=== PATIENT | male | born 1970 | race Two or more races ===

== ENCOUNTER 2022-11-12 04:27 | Inpatient (IN) | payer BC, OTHER ==
[~2022-11-12] VITALS: Ht 177.8 cm; Wt 79.5 kg
[2022-11-12 05:41] LABS: Basophils # (auto) 0 10 ^3/uL (0-0.2); Basophils % (auto) 0.1 % (0.0-2.0); Eosinophils # (auto) 0 10 ^3/uL (0-0.8); Hematocrit 42.6 % (41.0-53.0); Hemoglobin 14.3 g/dL (13.5-17.5); Lymphocytes # (auto) 0.9 10 ^3/uL (0.4-5.4); Lymphocytes % (auto) 4.8 % (10.0-50.0); Mean Corpuscular Hemoglobin 30.7 pg (28.0-32.0); Mean Corpuscular Hgb Conc. 33.6 g/dL (32.0-36.0); Mean Corpuscular Volume 91.6 fL (80.0-100.0); Monocytes # (auto) 0.7 10 ^3/uL (0-1.3); Monocytes % (auto) 3.7 % (0.0-12.0); Neutrophils # (auto) 16.9 10 ^3/uL (1.6-8.6); Neutrophils % (auto) 91.4 % (37.0-80.0); Nucleated Red Blood Cells % 0.2 %; Red Blood Cells 4.65 10^6/uL (4.5-5.90); Red Cell Distribution Width 12.6 % (11.8-14.3); White Blood Cell 18.5 10^3/uL (4.4-10.8)
[2022-11-12 06:03] LABS: Potassium 4.5 mmol/L (3.5-5.1)
[2022-11-12 06:11] LABS: Albumin 3.7 g/dL (3.4-5.0); BUN/Creatinine Ratio 12.2 (10.0-20.0); Bilirubin, Total 1.8 mg/dL (0.2-1.0); Calcium 8.7 mg/dL (8.5-10.1); Total Protein 7.9 g/dL (6.4-8.2)
[2022-11-12] MEDS ORDERED: SODIUM CHLORIDE 0.9% 1,000 ML IV ONE (06:15)
[2022-11-12] MEDS ORDERED: PROMETHAZINE HCL 25 MG/ML 1ML IV PRN (06:15)
[2022-11-12] MEDS ORDERED: metroNIDAZOLE 500MG/100ML 100 ML IV ONE (06:15)
[2022-11-12] MEDS ORDERED: HYDROmorphone HCL 2 MG/ML VL/or syr IV ONE (06:15)
[2022-11-12] MEDS ORDERED: SODIUM CHLORIDE 0.9% 500 ML IVB ONE (06:15)
[2022-11-12] MEDS ORDERED: cefTRIAXone 1GM/50ML D5W 50 ML IV ONE (06:15)
[2022-11-12 06:39] LABS: INR 1.16 (0.9-1.15); Partial Thromboplastin Time 29.8 SEC (24.5-34.5); Prothrombin Time 12.1 sec (9.3-11.8)
[2022-11-12 06:40] LABS: Magnesium 2.2 mg/dL (1.6-2.6)
[2022-11-12 08:16] VITALS: PULSE 87; RESP 19; O2SAT 94
[2022-11-12] MEDS ORDERED: HYDROcodone-ACET 5/325MG TAB PO PRN (09:15)
[2022-11-12] MEDS ORDERED: ONDANSETRON HCL 4 MG/2 ML VIAL IV PRN ×2 (09:15→13:15)
[2022-11-12] MEDS ORDERED: ACETAMINOPHEN 325 MG TAB PO PRN (09:15)
[2022-11-12] MEDS ORDERED: MORPHINE SULFATE INJ 2 MG/ml SYRG IV PRN (09:15)
[2022-11-12] MEDS ORDERED: ceFAZolin 1GM/50ML 100 ML IV ONE (10:38)
[2022-11-12] MEDS ORDERED: BUPIVACAINE W/ EPINEPH 0.5% INJ 50ML MDV IJ ONE (11:26)
[2022-11-12] MEDS ORDERED: LIDOCAINE 1% HCL (LOCAL ANESTH.) INJ 20ML MDV ONE (11:38)
[2022-11-12] MEDS ORDERED: LIDOCAINE 2% JELLY 11ml (GLYDO) ONE (11:38)
[2022-11-12] MEDS ORDERED: ONDANSETRON HCL 4 MG/2 ML VIAL ONE (11:43)
[2022-11-12] MEDS ORDERED: DexAMETHasone SOD PHOS 10MG/1ML VIAL INJ ONE (11:43)
[2022-11-12] MEDS ORDERED: PROPOFOL 10 MG/ML 20 ML IV ONE (11:43)
[2022-11-12] MEDS ORDERED: GLYCOPYRROLATE 0.2 MG/ML 1ML VIAL ONE (11:43)
[2022-11-12] MEDS ORDERED: KETOROLAC TROMETH 30 MG/ML 1ML VIAL ONE (11:44)
[2022-11-12] MEDS ORDERED: LIDOCAINE W/ EPINEPHRINE 1% 20ML VIAL ONE (11:45)
[2022-11-12] MEDS ORDERED: LIDOCAINE 1% INJ PF 5ML AMP ONE (11:45)
[2022-11-12] MEDS ORDERED: BUPIVACAINE 0.25% INJ 50ML VIAL ONE (11:45)
[2022-11-12] MEDS ORDERED: ROCURONIUM 10MG/ML 10ML VIAL IV ONE (11:45)
[2022-11-12] MEDS ORDERED: SUGAMMADEX 200mg/2ml Vial (100MG/ML) IV ONE (11:46)
[2022-11-12] MEDS ORDERED: fentaNYL CITRATE 100 MCG/2 ML VL ONE (11:46)
[2022-11-12] MEDS ORDERED: hydrALAZINE HCL 20 MG/ML VL IV PRN (13:15)
[2022-11-12] MEDS ORDERED: ePHEDrine SULFATE 50 MG/ML AMP IV PRN (13:15)
[2022-11-12] MEDS ORDERED: NALOXONE HCL 0.4 MG/ML VIAL IV PRN (13:15)
[2022-11-12] MEDS ORDERED: oxyCODONE HCL 5MG TAB PO PRN (13:15)
[2022-11-12] MEDS ORDERED: fentaNYL CITRATE 100 MCG/2 ML VL IV PRN (13:15)
[2022-11-12] MEDS ORDERED: LABETALOL HCL 5 MG/ML 4ML SYRINGE IV PRN (13:15)
[2022-11-12] MEDS ORDERED: HYDROmorphone HCL 2 MG/ML VL/or syr IV PRN (13:15)
[2022-11-12] MEDS ORDERED: FLUMAZENIL 0.1 MG/ML INJ 10ML MDV IV PRN (13:15)
[2022-11-12] MEDS: SODIUM CHLORIDE 0.9% 1,000 ML IV SCH ×3 (15:55→22:35)
[2022-11-12] MEDS: PANTOPRAZOLE 40 MG/10 ML VIAL INJ IV SCH (15:56)
[2022-11-12] MEDS: PIPERACILLIN-TAZOB 3.375GM 100 ML IV SCH ×2 (15:56→21:50)
[2022-11-12 17:10] VITALS: BP 95/57; PULSE 80; RESP 16; TEMP 98.5; O2SAT 95
[2022-11-12 18:06] VITALS: BP 98/66; PULSE 68; RESP 16; TEMP 99.2; O2SAT 96
[2022-11-12 20:00] VITALS: PULSE 69; RESP 17; O2SAT 95
[2022-11-12 22:00] VITALS: BP 96/54; PULSE 69; RESP 17; TEMP 98.1; O2SAT 95
[2022-11-13 05:00] VITALS: BP 99/61; PULSE 62; RESP 17; TEMP 97.9; O2SAT 96
[2022-11-13 05:53] LABS: Basophils # (auto) 0 10 ^3/uL (0-0.2); Eosinophils # (auto) 0 10 ^3/uL (0-0.8); Hematocrit 38.4 % (41.0-53.0); Hemoglobin 12.8 g/dL (13.5-17.5); Lymphocytes # (auto) 0.9 10 ^3/uL (0.4-5.4); Lymphocytes % (auto) 7.7 % (10.0-50.0); Mean Corpuscular Hemoglobin 31.1 pg (28.0-32.0); Mean Corpuscular Hgb Conc. 33.4 g/dL (32.0-36.0); Mean Corpuscular Volume 93.3 fL (80.0-100.0); Monocytes # (auto) 0.8 10 ^3/uL (0-1.3); Monocytes % (auto) 6.5 % (0.0-12.0); Neutrophils # (auto) 10.1 10 ^3/uL (1.6-8.6); Neutrophils % (auto) 85.8 % (37.0-80.0); Nucleated Red Blood Cells % 0.1 %; Red Blood Cells 4.12 10^6/uL (4.5-5.90); Red Cell Distribution Width 12.8 % (11.8-14.3); White Blood Cell 11.8 10^3/uL (4.4-10.8)
[2022-11-13 06:10] LABS: Albumin 2.9 g/dL (3.4-5.0); Calcium 8.4 mg/dL (8.5-10.1); Potassium 4.1 mmol/L (3.5-5.1)
[2022-11-13] MEDS: SODIUM CHLORIDE 0.9% 1,000 ML IV SCH (06:12)
[2022-11-13] MEDS: PIPERACILLIN-TAZOB 3.375GM 100 ML IV SCH ×3 (06:12→21:42)
[2022-11-13 06:16] LABS: BUN/Creatinine Ratio 18.1 (10.0-20.0); Bilirubin, Total 1.1 mg/dL (0.2-1.0); Total Protein 6.9 g/dL (6.4-8.2)
[2022-11-13 08:00] VITALS: PULSE 69; RESP 17; O2SAT 97
[2022-11-13] MEDS: PANTOPRAZOLE 40 MG/10 ML VIAL INJ IV SCH (10:25)
[2022-11-13 13:48] VITALS: BP 112/66; PULSE 67; RESP 18; TEMP 97.9; O2SAT 96
[2022-11-13] MEDS ORDERED: CYANOCOBALAMIN (B-12) 1000 MCG/1 ML VIAL IM ONE (14:30)
[2022-11-13 16:55] VITALS: BP 101/66; PULSE 76; RESP 18; TEMP 97.9; O2SAT 96
[2022-11-13 20:00] VITALS: PULSE 73; RESP 20; O2SAT 96
[2022-11-13 22:00] VITALS: BP 120/68; PULSE 78; RESP 18; TEMP 98.4; O2SAT 97
[2022-11-14 05:00] VITALS: BP 112/69; PULSE 71; RESP 18; TEMP 98.4; O2SAT 95
[2022-11-14] MEDS: PIPERACILLIN-TAZOB 3.375GM 100 ML IV SCH ×3 (05:32→21:14)
[2022-11-14 05:50] LABS: Basophils # (auto) 0 10 ^3/uL (0-0.2); Basophils % (auto) 0.1 % (0.0-2.0); Eosinophils # (auto) 0 10 ^3/uL (0-0.8); Eosinophils % (auto) 0.2 % (0.0-7.0); Hematocrit 35.9 % (41.0-53.0); Hemoglobin 12.3 g/dL (13.5-17.5); Lymphocytes # (auto) 1.1 10 ^3/uL (0.4-5.4); Lymphocytes % (auto) 11.7 % (10.0-50.0); Mean Corpuscular Hemoglobin 31.4 pg (28.0-32.0); Mean Corpuscular Hgb Conc. 34.3 g/dL (32.0-36.0); Mean Corpuscular Volume 91.7 fL (80.0-100.0); Monocytes # (auto) 0.7 10 ^3/uL (0-1.3); Monocytes % (auto) 7.4 % (0.0-12.0); Neutrophils # (auto) 7.8 10 ^3/uL (1.6-8.6); Neutrophils % (auto) 80.6 % (37.0-80.0); Red Blood Cells 3.92 10^6/uL (4.5-5.90); Red Cell Distribution Width 12.7 % (11.8-14.3); White Blood Cell 9.7 10^3/uL (4.4-10.8)
[2022-11-14 06:08] LABS: Albumin 2.9 g/dL (3.4-5.0); Calcium 8.5 mg/dL (8.5-10.1); Potassium 4.4 mmol/L (3.5-5.1)
[2022-11-14 06:10] LABS: BUN/Creatinine Ratio 18.6 (10.0-20.0)
[2022-11-14 06:13] LABS: Bilirubin, Total 1.2 mg/dL (0.2-1.0); Total Protein 6.6 g/dL (6.4-8.2)
[2022-11-14 08:00] VITALS: PULSE 73; RESP 20; O2SAT 96
[2022-11-14 10:57] VITALS: BP 117/73; PULSE 65; RESP 17; TEMP 99.9; O2SAT 96
[2022-11-14 13:09] VITALS: BP 120/73; PULSE 69; RESP 19; TEMP 98.8; O2SAT 96
[2022-11-14] MEDS ORDERED: AUG875T PO (13:16)
[2022-11-14 20:00] VITALS: BP 106/65; PULSE 17; PULSE 72; RESP 17; TEMP 98.4; O2SAT 97
[2022-11-14 22:00] VITALS: BP 106/65; PULSE 72; RESP 17; TEMP 98.4; O2SAT 97
[2022-11-15 05:00] VITALS: BP 105/65; PULSE 56; RESP 17; TEMP 98.5; O2SAT 96
[2022-11-15] MEDS: PIPERACILLIN-TAZOB 3.375GM 100 ML IV SCH (05:46)
[2022-11-15 08:00] VITALS: BP 109/64; PULSE 80; RESP 18; TEMP 98.1; O2SAT 97
[2022-11-15 08:46] LABS: Basophils # (auto) 0 10 ^3/uL (0-0.2); Basophils % (auto) 0.2 % (0.0-2.0); Eosinophils # (auto) 0.1 10 ^3/uL (0-0.8); Eosinophils % (auto) 0.6 % (0.0-7.0); Hematocrit 38.5 % (41.0-53.0); Lymphocytes # (auto) 1.3 10 ^3/uL (0.4-5.4); Lymphocytes % (auto) 13.7 % (10.0-50.0); Mean Corpuscular Hemoglobin 30.9 pg (28.0-32.0); Mean Corpuscular Hgb Conc. 33.7 g/dL (32.0-36.0); Mean Corpuscular Volume 91.7 fL (80.0-100.0); Monocytes # (auto) 0.8 10 ^3/uL (0-1.3); Monocytes % (auto) 8.6 % (0.0-12.0); Neutrophils # (auto) 7.1 10 ^3/uL (1.6-8.6); Neutrophils % (auto) 76.9 % (37.0-80.0); Nucleated Red Blood Cells % 0.1 %; Red Cell Distribution Width 12.5 % (11.8-14.3); White Blood Cell 9.2 10^3/uL (4.4-10.8)
[2022-11-15 11:12] LABS: Albumin 2.8 g/dL (3.4-5.0); Calcium 8.7 mg/dL (8.5-10.1)
[2022-11-15 11:14] VITALS: BP 109/64; PULSE 80; RESP 18; TEMP 98.1; O2SAT 97
[2022-11-15 11:16] LABS: BUN/Creatinine Ratio 11.1 (10.0-20.0); Total Protein 6.9 g/dL (6.4-8.2)
[2022-11-15] MEDS ORDERED: AUG875T PO (11:21)
== END 2022-11-15 13:46 | disposition home or self-care (01) | DRG 339 ==
LOC: ER 04:27 → OVERFLOW 09:09 → CENTRAL 14:45
PROVIDERS: ADMIT Internal Medicine; ATTEND Internal Medicine
PROC: 0DTJ4ZZ Resection of Appendix, Percutaneous Endoscopic Approach (ICD-10-PCS; principal; 2022-11-12 11:55)
DX: K35.32 Acute appendicitis with perforation, localized peritonitis, and gangrene, without abscess (principal); E44.0 Moderate protein-calorie malnutrition; K66.0 Peritoneal adhesions (postprocedural) (postinfection); I95.9 Hypotension, unspecified; E88.09 Other disorders of plasma-protein metabolism, not elsewhere classified; D72.829 Elevated white blood cell count, unspecified; Z82.49 Family history of ischemic heart disease and other diseases of the circulatory system; Z87.442 Personal history of urinary calculi; Z68.25 Body mass index [BMI] 25.0-25.9, adult
CPT/HCPCS: 36415; 71046; 74176; 80053; 82607; 83036; 83690; 83735; 84443; 85025; 85610; 85730; 87070; 87075; 87076; 87077; 87186; 87205; 93005; C9113; G0378; J0690; J0696; J1100; J1885; J2001; J2405; J2543; J2704; J3490